=== PATIENT | female | born 1990 | race Caucasian/White ===

== ENCOUNTER 2019-02-03 02:58 | Emergency (ER) | payer BC ==
[~2019-02-03] VITALS: Ht 167.6 cm; Wt 83.9 kg
[2019-02-03 03:04] VITALS: Ht 167.6 cm; Wt 83.9 kg
[2019-02-03 05:09] VITALS: BP 105/55
== END 2019-02-03 05:09 | disposition home or self-care (01) ==
LOC: ED 02:58
DX: S83.91XA Sprain of unspecified site of right knee, initial encounter (principal); X37.1XXA Tornado, initial encounter; Y93.89 Activity, other specified; Y92.89 Other specified places as the place of occurrence of the external cause; Y99.8 Other external cause status
CPT/HCPCS: J1885